=== PATIENT | female | born 1960 | race Asian ===

== ENCOUNTER 2021-09-26 08:00 | Outpatient (CLI) | payer BC | END 2021-09-26 08:01 | disposition home or self-care (01) | LOC: CSHCT 08:00 | PROVIDERS: ATTEND Internal Medicine Gastroenterology | DX: K51.90 Ulcerative colitis, unspecified, without complications (principal); M25.50 Pain in unspecified joint; R94.5 Abnormal results of liver function studies; K76.89 Other specified diseases of liver; N28.1 Cyst of kidney, acquired; N20.0 Calculus of kidney; K76.0 Fatty (change of) liver, not elsewhere classified; N28.9 Disorder of kidney and ureter, unspecified | CPT/HCPCS: 74177; 82565 ==

== ENCOUNTER 2022-12-20 08:01 | Outpatient (CLI) | payer BC | END 2022-12-20 08:02 | disposition home or self-care (01) | LOC: CSHULT 08:01 | PROVIDERS: ATTEND Internal Medicine Gastroenterology | DX: K51.90 Ulcerative colitis, unspecified, without complications (principal); R53.83 Other fatigue; R74.01 Elevation of levels of liver transaminase levels; K82.4 Cholesterolosis of gallbladder; K76.0 Fatty (change of) liver, not elsewhere classified | CPT/HCPCS: 76705 ==